=== PATIENT | male | born 1940 | race Caucasian/White ===

== ENCOUNTER 2017-04-05 15:04 | Emergency (ER) | payer OTHER, BC ==
[~2017-04-05] VITALS: Ht 182.9 cm; Wt 136.0 kg
[~2017-04-05 15:04] MED LIST: ATORVASTATIN CA40 MG PO; CARVEDILOL12.5 MG PO; CARVEDILOL25 MG PO; CENTRUM SILVER1 EAC3 PO; FLOMAX0.4 MG PO; FUROSEMIDE20 MG PO; FUROSEMIDE40 MG PO; KEFLEX500 MG PO; LEVOTHYROXINE100 MCG PO; LIPITOR40 MG PO; LOW DOSE ASPIRI81 M1 PO; NITROSTAT0.4 MG SL; PERCOCET 5/31 TABLET PO; TAMSULOSIN HCL0.4 MG PO; XARELTO20 MG PO
[2017-04-05 16:58] LABS: EOSINOPHIL COUNT 0.3 K/uL (0-0.3); IMMATURE GRANULOCYTE (%) 0.3 % (0.0-0.7); LYMPHOCYTE COUNT 1.7 K/uL (1.0-2.8); MCHC 33.4 G/DL (30.0-36.0); MCV 89.8 FL (86-99); MEAN PLAT.VOLUME 9.9 uM^3 (9.0-12.4); MONOCYTE (%) 7.9 % (3-12); MONOCYTE COUNT 0.5 K/uL (0-0.8); NEUTROPHIL (%) 61.1 % (45-76); PLATELET COUNT 224 K/uL (156-360); RBC DIS.WIDTH-CV 13.7 % (11.8-14.6); RBC DIS.WIDTH-SD 45.2 % (39-53); WHITE BLOOD COUNT 6.5 K/uL (4.1-10.2)
[2017-04-05 17:06] LABS: CHLORIDE 109 mEq/L (99-109); POTASSIUM 3.8 mEq/L (3.7-5.4); SODIUM 144 mEq/L (136-147)
[2017-04-05 17:09] LABS: GLUCOSE 90 mg/dL (70-99)
[2017-04-05 17:10] LABS: ANION GAP 10 MEQ/L (2-14)
[2017-04-05 17:11] LABS: TOTAL BILIRUBIN 1.2 mg/dL (0.0-1.0)
[2017-04-05 17:12] LABS: ALKALINE PHOSPHATASE 71 IU/L (3-129); GFR ESTIMATE (CALCULATED) > 59 mL/min/
[2017-04-05 17:13] LABS: UREA NITROGEN (BUN) 14 mg/dL (9-23)
[2017-04-05 17:16] LABS: LIPASE 21 U/L (1.0-51.0)
[2017-04-05 17:50] LABS: DIRECT BILIRUBIN 0.4 mg/dL (0.0-0.3)
[2017-04-05 18:37] LABS: ADD MIUA? NO; BILIRUBIN NEGATIVE; BLOOD NEGATIVE; COLOR YELLOW ((YELLOW)); GLUCOSE (STRIP) NEGATIVE; KETONES NEGATIVE; LEUKOCYTES NEGATIVE; NITRITE NEGATIVE; PROTEIN (STRIP) NEGATIVE; SPECIFIC GRAVITY 1.019 (1.000-1.030)
[2017-04-05] MEDS ORDERED: VALIUM5 MG PO (19:42)
[2017-04-05] MEDS ORDERED: NORCO 7.5/321 TABLET PO (19:42)
[2017-04-05 20:06] VITALS: BP 185/99
== END 2017-04-05 20:06 | disposition home or self-care (01) ==
LOC: EME 15:04 → RME 15:04
PROVIDERS: Physician Assistant
DX: S39.012A Strain of muscle, fascia and tendon of lower back, initial encounter (principal); L72.3 Sebaceous cyst; K76.9 Liver disease, unspecified; I11.0 Hypertensive heart disease with heart failure; I50.9 Heart failure, unspecified; E78.5 Hyperlipidemia, unspecified; Z79.82 Long term (current) use of aspirin
CPT/HCPCS: 74177; 80053; 81003; 82248; 83605; 83690; 85025; 99281; 99284; J1170; J3010; J7030

== ENCOUNTER 2017-05-13 09:26 | Day surgery (SDC) | payer OTHER, BC ==
[~2017-05-13] VITALS: Ht 185.4 cm; Wt 136.0 kg
[~2017-05-13 09:26] MED LIST changes: +HYDROCODON-ACE1 EAC8 PO; +LISINOPRIL20 MG PO; +NORCO 7.5/321 TABLET PO; +VALIUM5 MG PO; +VICODIN 5-3001 EACH PO
[2017-05-13 10:13] LABS: EOSINOPHIL (%) 1.3 % (0-5); EOSINOPHIL COUNT 0.1 K/uL (0-0.3); HEMATOCRIT 48.1 % (38.0-50.0); IMMATURE GRANULOCYTE (%) 0.2 % (0.0-0.7); INSTRUMENT ABS NEUTROPHIL CT 4.3 K/uL; LYMPHOCYTE COUNT 1.3 K/uL (1.0-2.8); MCH 29.6 PG (29.0-34.0); MCHC 33.3 G/DL (30.0-36.0); MCV 89.1 FL (86-99); MEAN PLAT.VOLUME 10.1 uM^3 (9.0-12.4); MONOCYTE COUNT 0.4 K/uL (0-0.8); NEUTROPHIL (%) 69.9 % (45-76); NEUTROPHIL COUNT 4.3 K/uL (1.8-6.4); PLATELET COUNT 216 K/uL (156-360); RBC DIS.WIDTH-CV 13.2 % (11.8-14.6); WHITE BLOOD COUNT 6.1 K/uL (4.1-10.2)
[2017-05-13 10:20] LABS: INTER. NORMALIZED RATIO 1.1; PROTHROMBIN TIME 11.9 SEC (10.2-12.9)
[2017-05-13 10:29] LABS: ANION GAP 8 MEQ/L (2-14); CHLORIDE 105 MEQ/L (99-109); POTASSIUM 4.2 MEQ/L (3.7-5.4); SAMPLE HEMOLYSIS CHECK 0; SAMPLE ICTERIC CHECK 0; SAMPLE LIPEMIA CHECK 0; SODIUM 141 MEQ/L (136-147); TOTAL BILIRUBIN 1.3 MG/DL (0.0-1.0)
[2017-05-13 10:35] LABS: ALKALINE PHOSPHATASE 82 IU/L (3-129); GFR ESTIMATE (CALCULATED) > 59 mL/min/; GLUCOSE 105 mg/dL (70-99); UREA NITROGEN (BUN) 13 mg/dL (9-23)
[2017-05-13 10:47] VITALS: BP 168/94
[2017-05-13] MEDS ORDERED: TRAMADOL HCL50 MG PO (16:56)
[2017-05-13 18:05] VITALS: BP 176/90
[2017-05-13 19:05] VITALS: BP 162/95
== END 2017-05-13 19:30 | disposition home or self-care (01) ==
LOC: SDC 09:26
PROVIDERS: Thoracic Surgery (Cardiothoracic Vascular Surgery)
DX: L72.0 Epidermal cyst (principal); I48.2 Chronic atrial fibrillation; I47.2 Ventricular tachycardia; I25.10 Atherosclerotic heart disease of native coronary artery without angina pectoris; I10 Essential (primary) hypertension; I71.2 Thoracic aortic aneurysm, without rupture; Z85.828 Personal history of other malignant neoplasm of skin; Z85.850 Personal history of malignant neoplasm of thyroid; Z79.01 Long term (current) use of anticoagulants; N40.0 Benign prostatic hyperplasia without lower urinary tract symptoms; I34.0 Nonrheumatic mitral (valve) insufficiency; E78.2 Mixed hyperlipidemia; E66.01 Morbid (severe) obesity due to excess calories; Z68.41 Body mass index [BMI] 40.0-44.9, adult
CPT/HCPCS: 80053; 85025; 85610; 87070; 87075; 87205; 88304; J0360; J0690; J0696; J1170; J1885; J2175; J3010; J7050

== ENCOUNTER 2017-05-15 08:38 | Emergency (ER) | payer OTHER, BC ==
[~2017-05-15] VITALS: Ht 182.9 cm; Wt 128.1 kg
[~2017-05-15 08:38] MED LIST changes: +TRAMADOL HCL50 MG PO
[2017-05-15 08:48] VITALS: BP 176/99
== END 2017-05-15 09:49 | disposition home or self-care (01) ==
LOC: EME 08:38
DX: Z48.817 Encounter for surgical aftercare following surgery on the skin and subcutaneous tissue (principal); L72.8 Other follicular cysts of the skin and subcutaneous tissue
CPT/HCPCS: 99281; 99283

== ENCOUNTER 2017-10-12 19:37 | Inpatient (IN) | payer OTHER, BC ==
[~2017-10-12] VITALS: Ht 182.9 cm; Wt 131.5 kg
[2017-10-12 22:03] LABS: HEMATOCRIT 44.5 % (38.0-50.0); MCH 30.5 PG (29.0-34.0); MCHC 33.7 G/DL (30.0-36.0); MCV 90.6 FL (86-99); PLATELET COUNT 193 K/uL (156-360); RBC DIS.WIDTH-CV 14.1 % (11.8-14.6); RBC DIS.WIDTH-SD 47.4 % (39-53); RED BLOOD COUNT 4.91 M/uL (4.00-5.50); WHITE BLOOD COUNT 8.2 K/uL (4.1-10.2)
[2017-10-12 22:06] LABS: INTER. NORMALIZED RATIO 1.1
[2017-10-12 22:18] LABS: CHLORIDE 109 mEq/L (99-109); POTASSIUM 3.9 mEq/L (3.7-5.4); SODIUM 143 mEq/L (136-147)
[2017-10-12] MEDS ORDERED: FUROSEMIDE40 MG PO (22:18)
[2017-10-12] MEDS ORDERED: SKELAXIN800 MG PO (22:18)
[2017-10-12] MEDS ORDERED: SYNTHROID100 MCG PO (22:19)
[2017-10-12] MEDS ORDERED: FLOMAX0.4 MG PO (22:19)
[2017-10-12] MEDS ORDERED: CARVEDILOL25 MG PO (22:19)
[2017-10-12] MEDS ORDERED: LIPITOR40 MG PO (22:19)
[2017-10-12 22:20] LABS: GLUCOSE 102 mg/dL (70-99)
[2017-10-12 22:24] LABS: GFR ESTIMATE (CALCULATED) > 59 mL/min/ (58.99-99999); TROP-I INTERPRETATION NEGATIVE; TROPONIN-I < 0.01 ng/mL (0.0-0.30)
[2017-10-12 22:25] LABS: UREA NITROGEN (BUN) 19 mg/dL (9-23)
[2017-10-12 22:56] LABS: PTT 31.6 SEC (25-37)
[2017-10-13 00:35] LABS: HDL CHOLESTEROL 37 MG/DL (Desirable>=40); LDL CHOLESTEROL 89 mg/dL (Desirable<100); NON-HDL CHOLESTEROL 123 mg/dL (Desirable<160); TOTAL CHOLESTEROL 160 mg/dL (Desirable<200); TRIGLYCERIDES 169 MG/DL (Normal: <150)
[2017-10-13 01:32] LABS: TROP-I INTERPRETATION NEGATIVE; TROPONIN-I 0.01 ng/mL (0.0-0.30)
[2017-10-13 05:48] LABS: HEMATOCRIT 47.1 % (38.0-50.0); HEMOGLOBIN 15.9 G/DL (12.5-16.6); MCH 30.6 PG (29.0-34.0); MCHC 33.8 G/DL (30.0-36.0); MCV 90.6 FL (86-99); PLATELET COUNT 202 K/uL (156-360); RBC DIS.WIDTH-CV 14.4 % (11.8-14.6); RBC DIS.WIDTH-SD 47.8 % (39-53); WHITE BLOOD COUNT 8.8 K/uL (4.1-10.2)
[2017-10-13 05:58] LABS: CHLORIDE 105 mEq/L (99-109); POTASSIUM 3.8 mEq/L (3.7-5.4); SODIUM 143 mEq/L (136-147)
[2017-10-13 06:01] LABS: GLUCOSE 105 mg/dL (70-99)
[2017-10-13 06:03] LABS: TOTAL BILIRUBIN 1.3 mg/dL (0.0-1.0)
[2017-10-13 06:04] LABS: ALKALINE PHOSPHATASE 79 IU/L (3-129)
[2017-10-13 06:05] LABS: GFR ESTIMATE (CALCULATED) > 59 mL/min/ (58.99-99999)
[2017-10-13 06:06] LABS: AST (GOT) 19 IU/L (2-34); UREA NITROGEN (BUN) 18 mg/dL (9-23)
[2017-10-13 06:07] LABS: ALT (GPT) 23 IU/L (3-49)
[2017-10-13 09:04] LABS: THYROTROPIN (TSH) 3.5 MIU/L (0.4-5.5)
[2017-10-13 11:57] LABS: TROP-I INTERPRETATION NEGATIVE; TROPONIN-I < 0.01 ng/mL (0.0-0.30)
[2017-10-13 18:25] VITALS: BP 125/81
[2017-10-13 19:54] VITALS: BP 141/72
[2017-10-13 22:45] VITALS: BP 135/80
[2017-10-14 04:39] VITALS: BP 136/74
[2017-10-14 05:07] LABS: BASOPHIL (%) 0.6 % (0-1); EOSINOPHIL COUNT 0.3 K/uL (0-0.3); HEMATOCRIT 41.5 % (38.0-50.0); IMMATURE GRANULOCYTE (%) 0.1 % (0.0-0.7); LYMPHOCYTE (%) 28.1 % (15-42); LYMPHOCYTE COUNT 1.9 K/uL (1.0-2.8); MCH 30.1 PG (29.0-34.0); MCHC 32.8 G/DL (30.0-36.0); MCV 91.8 FL (86-99); MONOCYTE (%) 10.6 % (3-12); MONOCYTE COUNT 0.7 K/uL (0-0.8); NEUTROPHIL (%) 56.6 % (45-76); NEUTROPHIL COUNT 3.8 K/uL (1.8-6.4); PLATELET COUNT 174 K/uL (156-360); RBC DIS.WIDTH-CV 14.1 % (11.8-14.6); RBC DIS.WIDTH-SD 47.8 % (39-53); RED BLOOD COUNT 4.52 M/uL (4.00-5.50); WHITE BLOOD COUNT 6.7 K/uL (4.1-10.2)
[2017-10-14 05:08] LABS: HEMOGLOBIN 13.6 G/DL (12.5-16.6)
[2017-10-14 05:31] LABS: CHLORIDE 105 MEQ/L (99-109); CREATININE 1.2 MG/DL (0.6-1.3); GFR ESTIMATE (CALCULATED) > 59 mL/min/ (58.99-99999); GLUCOSE 92 mg/dL (70-99); POTASSIUM 3.5 MEQ/L (3.7-5.4); SODIUM 143 MEQ/L (136-147); UREA NITROGEN (BUN) 18 mg/dL (9-23)
[2017-10-14 08:46] VITALS: BP 165/80
[2017-10-14 13:22] VITALS: BP 139/77
[2017-10-14 14:54] VITALS: BP 130/70
[2017-10-14 20:00] VITALS: BP 175/90
[2017-10-14 23:55] VITALS: BP 138/76
[2017-10-15 04:00] VITALS: BP 140/88
[2017-10-15 06:32] LABS: BASOPHIL (%) 0.7 % (0-1); EOSINOPHIL (%) 4.6 % (0-5); EOSINOPHIL COUNT 0.3 K/uL (0-0.3); HEMATOCRIT 43.6 % (38.0-50.0); HEMOGLOBIN 14.3 G/DL (12.5-16.6); IMMATURE GRANULOCYTE (%) 0.2 % (0.0-0.7); LYMPHOCYTE (%) 29.4 % (15-42); LYMPHOCYTE COUNT 1.8 K/uL (1.0-2.8); MCH 29.5 PG (29.0-34.0); MCHC 32.8 G/DL (30.0-36.0); MCV 90.1 FL (86-99); MONOCYTE (%) 10.2 % (3-12); MONOCYTE COUNT 0.6 K/uL (0-0.8); NEUTROPHIL (%) 54.9 % (45-76); NEUTROPHIL COUNT 3.3 K/uL (1.8-6.4); PLATELET COUNT 195 K/uL (156-360); RBC DIS.WIDTH-CV 13.9 % (11.8-14.6); RBC DIS.WIDTH-SD 45.7 % (39-53); RED BLOOD COUNT 4.84 M/uL (4.00-5.50); WHITE BLOOD COUNT 6.1 K/uL (4.1-10.2)
[2017-10-15 07:06] LABS: CHLORIDE 106 MEQ/L (99-109); CREATININE 1.1 MG/DL (0.6-1.3); GFR ESTIMATE (CALCULATED) > 59 mL/min/ (58.99-99999); GLUCOSE 95 mg/dL (70-99); POTASSIUM 3.3 MEQ/L (3.7-5.4); SODIUM 143 MEQ/L (136-147); UREA NITROGEN (BUN) 21 mg/dL (9-23)
[2017-10-15 08:04] VITALS: BP 133/84
[2017-10-15 09:50] VITALS: BP 127/71
[2017-10-15 11:21] VITALS: BP 105/71
== END 2017-10-15 15:56 | disposition home health service (06) | DRG 291 ==
LOC: EME 19:37 → 4EAST 23:11 → EDOF 23:11 → ENRESERV 23:20 → 4EAST 10-13 18:12
PROVIDERS: Emergency Medicine; Hospitalist; Internal Medicine; Internal Medicine Cardiovascular Disease
PROC: 5A09357 Assistance with Respiratory Ventilation, Less than 24 Consecutive Hours, Continuous Positive Airway Pressure (ICD-10-PCS; principal; 2017-10-14)
DX: I11.0 Hypertensive heart disease with heart failure (principal); I50.23 Acute on chronic systolic (congestive) heart failure; J18.9 Pneumonia, unspecified organism; E87.6 Hypokalemia; I34.0 Nonrheumatic mitral (valve) insufficiency; G47.33 Obstructive sleep apnea (adult) (pediatric); I25.10 Atherosclerotic heart disease of native coronary artery without angina pectoris; I27.20 Pulmonary hypertension, unspecified; I44.7 Left bundle-branch block, unspecified; I47.2 Ventricular tachycardia; I48.2 Chronic atrial fibrillation; E66.01 Morbid (severe) obesity due to excess calories; Z68.39 Body mass index [BMI] 39.0-39.9, adult; M19.90 Unspecified osteoarthritis, unspecified site; E03.9 Hypothyroidism, unspecified; E78.5 Hyperlipidemia, unspecified; N40.0 Benign prostatic hyperplasia without lower urinary tract symptoms
CPT/HCPCS: 71045; 71046; 71250; 80048; 80053; 80061; 83735; 84443; 84484; 85025; 85027; 85610; 85730; 93005; 93306; 93970; 94799; 99281; 99285; J1940; J7050

== ENCOUNTER 2018-02-02 14:03 | Day surgery (SDC) | payer OTHER, BC ==
[~2018-02-02] VITALS: Ht 182.9 cm; Wt 134.3 kg
[~2018-02-02 14:03] MED LIST changes: +KLOR-CON M2020 MEQ PO; +SKELAXIN800 MG PO; +SYNTHROID100 MCG PO
[2018-02-02 14:46] VITALS: BP 161/86
[2018-02-02] MEDS ORDERED: COLACE100 MG PO (16:48)
[2018-02-02] MEDS ORDERED: HYDROCODON-ACE1 EAC7 PO (16:48)
[2018-02-02 17:15] VITALS: BP 184/94
[2018-02-02 18:11] VITALS: BP 164/80
== END 2018-02-02 18:15 | disposition home or self-care (01) ==
LOC: SDC 14:03
DX: L72.0 Epidermal cyst (principal); I48.91 Unspecified atrial fibrillation; Z79.01 Long term (current) use of anticoagulants; G47.33 Obstructive sleep apnea (adult) (pediatric); I10 Essential (primary) hypertension; E78.5 Hyperlipidemia, unspecified; Z85.850 Personal history of malignant neoplasm of thyroid; Z90.49 Acquired absence of other specified parts of digestive tract; Z80.0 Family history of malignant neoplasm of digestive organs; Z82.49 Family history of ischemic heart disease and other diseases of the circulatory system
CPT/HCPCS: J0690; J2250; J2405; J3010